=== PATIENT | female | born 1995 | race Caucasian/White ===

== ENCOUNTER → 2020-07-10 17:51 | Outpatient (BNVA) | payer MEDICAID, SELFPAY | PROVIDERS: PCP Nurse Practitioner Family; Visit Provider Surgery | DX: Z11.59 Encounter for screening for other viral diseases (principal) | CPT/HCPCS: 87635 ==

== ENCOUNTER 2020-07-14 06:43 | Day surgery (SDC) | payer MEDICAID, SELFPAY ==
[2020-07-11 13:57] VITALS: BMI 38.6
[2020-07-14 06:52] VITALS: BMI 38.6
[2020-07-14 07:05] VITALS: BP 145/89; PULSE 93; RESP 18; TEMP 36.7; O2SAT 99
[2020-07-14] MEDS: sodium chloride 0.9% 1,000 ML 30 ML IV (07:07)
[2020-07-14 07:12] LABS: OR HCG Qualitative Urine Negative (Negative)
--- NOTE | 2020-07-14 07:37 | W.PM.OPSUD ---
Surgery/Procedure H&P Update DATE OF PROCEDURE: July 14, 2020 DATE H&P PERFORMED: 07/07/20 H&P UPDATE INFORMATION: I have reviewed H&P completed within last 30 days, I have examined patient prior to procedure and No changes to prior documentation PREOP DIAGNOSIS: Hematochezia PRIMARY INDICATION FOR PROCEDURE: The same PLANNED PROCEDURE: Operation Date: 07/14/20 07:40 Proposed Procedures p EGD/colon 68620 [id number] R10.9 K92.1(Not Applicable) - Osmin Juan MD s Colonoscopy(Not Applicable) - Osmin Juan MD
[2020-07-14 08:00] VITALS: BP 117/81; PULSE 81; RESP 16; TEMP 36.5; O2SAT 97
--- NOTE | 2020-07-14 08:03 | ANE.PACU2 ---
Inpatient post-anesthesia follow up: Airway intact: Yes Vital signs: Temperature 98.1 F Pulse Rate 93 Respiratory Rate 18 Blood Pressure 145/89 Pulse Oximetry 99 Oxygen Delivery Me thod Room Air Oxygen Flow Rate Fraction of Inspir ed Oxygen Hydration adequate: Yes Nausea and vomiting: No Pain level: 1 Mental status: Baseline
--- NOTE | 2020-07-14 15:17 | ANE.PACU2 ---
Inpatient post-anesthesia follow up: Airway intact: Yes Vital signs: Temperature 97.7 F Pulse Rate 81 Respiratory Rate 16 Blood Pressure 117/81 Pulse Oximetry 97 Oxygen Delivery Me thod Nasal Cannula Oxygen Flow Rate 2 Fraction of Inspir ed Oxygen Hydration adequate: Yes Nausea and vomiting: No Pain level: 1 Mental status: Baseline
== END 2020-07-14 08:25 | disposition home or self-care (01) ==
PROVIDERS: Anesthesiology; PCP Nurse Practitioner Family; Visit Provider Surgery
PROC: 0DJ08ZZ Inspection of Upper Intestinal Tract, Via Natural or Artificial Opening Endoscopic (ICD-10-PCS; CPT 43235; principal; 2020-07-14 07:40)
PROC: 0DJD8ZZ Inspection of Lower Intestinal Tract, Via Natural or Artificial Opening Endoscopic (ICD-10-PCS; CPT 45378; 2020-07-14 07:40)
DX: K92.1 Melena (principal)
CPT/HCPCS: 12345; 43235; 45378; 81025; 84703; J2704; J7030

== ENCOUNTER → 2020-10-05 18:41 | Outpatient (BNVA) | payer MEDICAID, SELFPAY | PROVIDERS: PCP Nurse Practitioner Family; Visit Provider Nurse Practitioner Family | DX: Z20.828 Contact with and (suspected) exposure to other viral communicable diseases (principal) | CPT/HCPCS: 87635 ==

== ENCOUNTER 2021-01-28 18:38 | Emergency (ER) | payer BC, MEDICAID, SELFPAY ==
[2021-01-28 18:51] VITALS: BP 137/83; PULSE 83; RESP 18; TEMP 36.6; O2SAT 99; BMI 34.2
--- NOTE | 2021-01-28 19:05 | ED_ITS ---
HPI - Abdominal Pain General: Chief Complaint: Abdominal Pain Stated Complaint: ab pain, suspects appendicitis Time Seen by Provider: 01/28/21 18:50 Source: patient Mode of arrival: ambulatory Limitations: no limitations History of Present Illness: HPI narrative: 25-year-old female states she been having right flank pain throughout the day. States been a sharp pain she rates a 7 out of 10. She states it is worse with movement and was worse when she was driving her car. States improved with rest. She denies any dysuria. She denies any vaginal bleeding or discharge. She denies any vomiting or diarrhea. Denies any fevers. MD elicited complaint: abdominal pain Associated Symptoms: Denies chills, dysuria and fever(s) Related Data: Date of Last Menstrual Period: 01/12/21 Review of Systems Const: Denies: fever(s), chills, body aches or change in appetite Eyes: Denies: blurry vision or eye discomfort ENMT: Denies: throat pain or dental pain Card: Denies: chest pain Resp: Denies: dyspnea GI: Reports: abdominal pain : Denies: dysuria Musc: Denies: neck pain or back pain Skin/Breast: Denies: rash Neuro: Denies: headache(s) Psych: Denies: depression Alexx/Lymph: Denies: easy bruising All/Imm: Denies: urticaria PFSH ED PFSH: Medical History (Updated 01/28/21 @ 20:03 by Edgar Villegas MD) Blood in stool Family History Denies family history of Anesthesia complication Bleeding disorder Social History (Updated 10/05/20 @ 18:33 by Ayesha Pereira NP) Smoking and tobacco status: never smoked Alcohol intake: never Female Reproductive History: Date of last menstrual period: 01/12/21 Physical Exam Const: COMMON NORMALS: no acute distress, patient oriented x3 and healthy appearing HENMT: COMMON NORMALS: normocephalic and atraumatic HEAD & SCALP: normocephalic and atraumatic Eye: COMMON NORMALS: Equal, round and reactive pupils present and EOMs intact bilaterally PUPIL: Yes Equal, round and reactive pupils present Neck/C-Spine: COMMON NORMALS: full ROM and supple Chest: COMMONS NORMALS: normal inspection of the chest and normal palpation of entire chest wall Resp: COMMON NORMALS: normal respiratory effort, No retractions, No use of accessory muscles and clear to auscultation bilaterally AUSCULTATION: clear to auscultation bilaterally Cardio: COMMON NORMALS: regular rate, regular rhythm and No murmurs present (Cardio) RATE: regular rate RHYTHM: regular rhythm GI: COMMON NORMALS: Normal to inspection, nondistended, normoactive bowel sounds present, Soft to palpation, non-tender and no masses PALPATION: Yes Soft to palpation OTHER: right cva tenderness Extremity: COMMON NORMALS: normal to inspection and full ROM Neuro: COMMON NORMALS: patient oriented x3, moves all extremities and no focal motor deficits Psych: COMMON NORMALS: mental status grossly normal, Normal thought process present and cooperative THOUGHT PROCESS: Normal thought process present Skin: COMMON NORMALS: no rashes or lesions noted and no wounds GENERAL SKIN EXAM: no rashes or lesions noted Course Vital Signs: Vital signs: Vital Signs Temperature 97.8 F 01/28/21 18:51 Pulse Rate 87 01/28/21 19:18 Respiratory Rate 19 H 01/28/21 19:18 Blood Pressure 138/90 01/28/21 19:18 Pulse Oximetry 99 01/28/21 19:18 MDM - Abdominal Pain MDM Narrative: Medical decision making narrative: Brandy presents with abdominal pain likely from constipation. She has no signs of pyelonephritis or appendicitis. We will place her on MiraLAX and she is stable for discharge. She is to follow-up with PCP and return if worsening. Lab Data: Labs: Lab Results 01/28/21 01/28/21 01/28/21 Range/Units 18:50 18:50 19:13 WBC 10.5 H (4.0-10.0) 10^3/ uL RBC 4.12 (4.1-5.3) 10^6/u L Hgb 12.7 (11.5-15.3) g/dL Hct 38.1 (37.0-47.0) % MCV 92.5 (81-99) fL MCH 30.8 (28.0-34.0) pg MCHC 33.3 (30.0-36.0) g/dL RDW 11.7 L (12.1-15.1) % Plt Count 352 (130-400) 10^3/c mm MPV 11.0 H (7.4-10.4) fL Neut % (Auto) 56.2 % Lymph % (Auto) 33.4 % [place] % (Auto) 5.4 % Eos % (Auto) 4.0 % Baso % (Auto) 0.7 % Neut # (Auto) 5.92 (1.8-7.7) 10^3/u L Lymph # (Auto) 3.5 (0.8-4.8) 10^3/u L [place] # (Auto) 0.6 (0.2-0.9) 10^3/u L Eos # (Auto) 0.4 (0.0-0.8) 10^3/u L Baso # (Auto) 0.1 (0.0-0.1) 10^3/u L Nucleated RBC % (a uto) 0 % Nucleated RBCs # 0.0 /100WBC Sodium (136-145) mmol/L Potassium (3.5-5.1) mmol/L Chloride (98-107) mmol/L Carbon Dioxide (22-29) mmol/L Anion Gap (5-19) BUN (6-20) mg/dL Creatinine (0.5-0.9) mg/dL GFR Calculation (90-130) mL/min Glucose (65-115) mg/dL Calculated Osmolal ity (285-295) mOsm/k g Calcium (8.5-10.5) mg/dL Total Bilirubin (0.15-1.2) mg/dL AST (0-32) U/L ALT (0-33) U/L Alkaline Phosphata se (35-105) IU/L Total Protein (6.6-8.7) g/dL Albumin (3.5-5.2) g/dL Globulin (1.3-4.6) g/dL Lipase (13-60) U/L HCG, Qual Negative (Negative) Urine Color Yellow (Yellow) Urine Appearance Clear (CLEAR) Urine pH 5 (5-7) Ur Specific Gravit y 1.020 (1.005-1.030) Urine Protein Neg (Negative) Urine Glucose (UA) Norm (Normal) Urine Ketones Negative (Negative) Urine Blood Neg (Negative) Urine Nitrate Negative (Negative) Urine Bilirubin Neg (Negative) Urine Urobilinogen Norm (Negative) mg/dL Ur Leukocyte Libia ase Negative (Negative) 01/28/21 Range/Units 19:13 WBC (4.0-10.0) 10^3/ uL RBC (4.1-5.3) 10^6/u L Hgb (11.5-15.3) g/dL Hct (37.0-47.0) % MCV (81-99) fL MCH (28.0-34.0) pg MCHC (30.0-36.0) g/dL RDW (12.1-15.1) % Plt Count (130-400) 10^3/c mm MPV (7.4-10.4) fL Neut % (Auto) % Lymph % (Auto) % [place] % (Auto) % Eos % (Auto) % Baso % (Auto) % Neut # (Auto) (1.8-7.7) 10^3/u L Lymph # (Auto) (0.8-4.8) 10^3/u L [place] # (Auto) (0.2-0.9) 10^3/u L Eos # (Auto) (0.0-0.8) 10^3/u L Baso # (Auto) (0.0-0.1) 10^3/u L Nucleated RBC % (a uto) % Nucleated RBCs # /100WBC Sodium 137 (136-145) mmol/L Potassium 4.1 (3.5-5.1) mmol/L Chloride 103 (98-107) mmol/L Carbon Dioxide 26 (22-29) mmol/L Anion Gap 12.1 (5-19) BUN 9 (6-20) mg/dL Creatinine 0.6 (0.5-0.9) mg/dL GFR Calculation 123.9 (90-130) mL/min Glucose 102 (65-115) mg/dL Calculated Osmolal ity 283 L (285-295) mOsm/k g Calcium 9.1 (8.5-10.5) mg/dL Total Bilirubin 0.3 (0.15-1.2) mg/dL AST 11 (0-32) U/L ALT 10 (0-33) U/L Alkaline Phosphata se 65 (35-105) IU/L Total Protein 6.8 (6.6-8.7) g/dL Albumin 4.3 (3.5-5.2) g/dL Globulin 2.5 (1.3-4.6) g/dL Lipase 55 (13-60) U/L HCG, Qual (Negative) Urine Color (Yellow) Urine Appearance (CLEAR) Urine pH (5-7) Ur Specific Gravit y (1.005-1.030) Urine Protein (Negative) Urine Glucose (UA) (Normal) Urine Ketones (Negative) Urine Blood (Negative) Urine Nitrate (Negative) Urine Bilirubin (Negative) Urine Urobilinogen (Negative) mg/dL Ur Leukocyte Libia ase (Negative) Imaging Data ^: CT Abd/Pel: Radiologist's impression: [id number] [address] [address] Scan Report Signed Patient: Niya Mckeon Unit #: [id number] : 1995 Age/Sex: 25 / F ADM Date: 01/28/21 Loc: ER Room/Bed: Attending Dr: Ordering Provider/Ordering MD: Edgar Villegas MD Date of Service: 01/28/21 Procedure(s): CT abdomen pelvis w con* [id number] Accession Number(s): [id number] Report Number: [id number] PROCEDURE INFORMATION: Exam: CT Abdomen And Pelvis With Contrast Exam date and time: 01/28/2021 7:23 PM Age: 25 years old Clinical indication: Abdominal pain; Localized; Right lower quadrant (rlq); Additional info: Abd pain TECHNIQUE: Imaging protocol: Computed tomography of the abdomen and pelvis with contrast. Radiation optimization: All CT scans at this facility use at least one of these dose optimization techniques: automated exposure control; mA and/or kV adjustment per patient size (includes targeted exams where dose is matched to clinical indication); or iterative reconstruction. Contrast material: OMNI 300; Contrast volume: 95 ml; Contrast route: INTRAVENOUS (IV); COMPARISON: CT Abdomen/Pelvis Renal [id number] 08/18/2018 10:34 PM RADIATION DOSE METRICS: Total DLP (mGy-cm): 1737.77 FINDINGS: Lungs: The visualized lung bases are clear. Liver: Normal size and density. No focal mass. Gallbladder and bile ducts: No intrahepatic or extrahepatic biliary dilitation. No calcified stones. Pancreas: No evidence of mass. No ductal dilation. Spleen: No splenomegaly or mass. Adrenal glands: Normal. Kidneys and ureters: No stones or hydronephrosis. No evidence of focal mass. Stomach and bowel: No evidence of obstruction. No focal bowel wall thickening or mass. No significant diverticula. Moderate to large amount of formed stool throughout the colon. Appendix: No evidence of appendicitis. Intraperitoneal space: No free air. No free fluid or evidence of abscess. Vasculature: No concerning abnormalities. Lymph nodes: Multiple is enteric lymph nodes are mildly prominent, but not pathologically enlarged by CT size criteria. This is similar in appearance to the prior exam. Urinary bladder: Normal CT appearance. Reproductive: Normal CT appearance for age. Bones/joints: No acute abnormality. Soft tissues: Within normal limits. CT/CT abdomen pelvis w con* [id number] IMPRESSION: 1. No acute findings. 2. A moderate to large amount of formed stool throughout the colon. Discharge Plan Discharge Patient Disposition: Home Clinical Impression: Constipation Qualifiers: Constipation type: unspecified constipation type Qualified Code(s): K59.00 - Constipation, unspecified Condition: Stable Prescriptions: New polyethylene glycol 3350 [Miralax] 17 gram/dose powder 17 g PO DAILY PRN (Reason: constipation) Qty: 119 RF: 0 No Action levothyroxine 125 mcg capsule 125 mcg PO DAILY@0500 RF: 0 bupropion HCl [Wellbutrin XL] 300 mg tablet extended release 24 hr 300 mg PO DAILY@0900 RF: 0 Discharge Orders: Discharge ED (Routine); Ordered 01/28/21 Ordered By: Edgar Villegas Referrals: Reji,WOODY Nelson [Primary Care Provider] - 1-3 days Discharge Diet: Advance as tolerated Discharge Activity: Resume usual activity Patient Instructions: Constipation (ED) Coding Level of Care Code ED Freezer Machine Operator for Chg Fwd Exam Comprehensive
[2021-01-28 19:08] LABS: Add Urine Microscopic? NO; Charge for UA Resulting for Rev
[2021-01-28 19:14] LABS: Bilirubin Urine Neg (Negative); Blood Urine Neg (Negative); Glucose Urine UA Norm (Normal); HCG Qualitative Urine. Negative (Negative); Ketones Urine Negative (Negative); Leukocyte Esterase Urine Negative (Negative); Nitrate Urine Negative (Negative); Protein Urine Neg (Negative); Urine Appearance Clear (CLEAR); Urine Color Yellow (Yellow); Urobilinogen Urine Norm (Negative); pH Urine 5 (5-7)
[2021-01-28 19:18] VITALS: BP 138/90; PULSE 87; RESP 19; O2SAT 99
[2021-01-28 19:20] LABS: Basophils # 0.1 10^3/uL (0.0-0.1); Basophils % 0.7 %; Eosinophils # 0.4 10^3/uL (0.0-0.8); Hematocrit 38.1 % (37.0-47.0); Hemoglobin 12.7 g/dL (11.5-15.3); Lymphocytes # 3.5 10^3/uL (0.8-4.8); Lymphocytes % 33.4 %; Mean Corpuscular HGB Conc 33.3 g/dL (30.0-36.0); Mean Corpuscular Hemoglobin 30.8 pg (28.0-34.0); Mean Corpuscular Volume 92.5 fL (81-99); Monocytes # 0.6 10^3/uL (0.2-0.9); Monocytes % 5.4 %; Neutrophils # 5.92 10^3/uL (1.8-7.7); Neutrophils % 56.2 %; Nucleated Red Blood Cells % 0 %; Platelet Count 352 10^3/cmm (130-400); Red Blood Count 4.12 10^6/uL (4.1-5.3); Red Cell Distribution Width 11.7 % (12.1-15.1); White Blood Count 10.5 10^3/uL (4.0-10.0)
[2021-01-28] MEDS: ondansetron 2 mg/ML SDV 2 mL 4 MG IVP (19:21)
[2021-01-28] MEDS: morphine 4 mg/mL SDV 1 mL IVP (19:23)
[2021-01-28] MEDS: iohexol 300 mg/mL 100 mL Btl IV (19:38)
[2021-01-28 19:46] LABS: Alanine Aminotransferase 10 U/L (0-33); Albumin Level 4.3 g/dL (3.5-5.2); Alkaline Phosphatase 65 IU/L (35-105); Anion Gap 12.1 (5-19); Aspartate Amino Transferase 11 U/L (0-32); Blood Urea Nitrogen 9 mg/dL (6-20); Calcium 9.1 mg/dL (8.5-10.5); Carbon Dioxide 26 mmol/L (22-29); Chloride 103 mmol/L (98-107); Globulin 2.5 g/dL (1.3-4.6); Glomerular Filtration Rate 123.9 mL/min (90-130); Glucose 102 mg/dL (65-115); Lipase 55 U/L (13-60); Osmolality Calculated 283 mOsm/kg (285-295); Potassium 4.1 mmol/L (3.5-5.1); Sodium 137 mmol/L (136-145); Total Bilirubin 0.3 mg/dL (0.15-1.2); Total Protein 6.8 g/dL (6.6-8.7)
[2021-01-28 20:23] VITALS: BP 125/78; PULSE 86; O2SAT 98
== END 2021-01-28 20:23 | disposition home or self-care (01) ==
PROVIDERS: Emergency Provider Emergency Medicine; PCP Nurse Practitioner Family
DX: K59.00 Constipation, unspecified (principal)
CPT/HCPCS: 74177; 80053; 81003; 81025; 83690; 85025; 96374; 96375; 99283; J2270; J2405; Q9967

== ENCOUNTER 2021-01-29 03:07 | Emergency (ER) | payer BC, MEDICAID, SELFPAY ==
[2021-01-29 03:13] VITALS: PULSE 83; RESP 18; TEMP 36.2; O2SAT 100; BMI 34.2
--- NOTE | 2021-01-29 03:21 | ED_ITS ---
HPI - Allergic Reaction General: Chief complaint: Allergic Reaction Stated complaint: poss allergic reaction Time Seen by Provider: 01/29/21 03:10 Source: patient Mode of arrival: ambulatory History of Present Illness: HPI narrative: 25-year-old female who was seen here earlier in the night for abdominal pain. She received morphine Zofran and had a CT of her abdomen with contrast. Findings were all normal and patient was discharged. States she started having a rash and itchiness about midnight. States she woke up at 230 it was worsening. She does have a rash to her chest and arms. She has no wheezing and denies any shortness of breath or trouble swallowing. No known allergic reactions in the past. MD complaint: allergic reaction Associated symptoms: Deny abdominal pain, nausea or vomiting Review of Systems Const: Denies: fever(s), chills, body aches or change in appetite Eyes: Denies: blurry vision or eye discomfort ENMT: Denies: throat pain or dental pain Card: Denies: chest pain Resp: Denies: dyspnea GI: Denies: abdominal pain, nausea, vomiting or diarrhea : Denies: dysuria Musc: Denies: neck pain or back pain Skin/Breast: Reports: rash Neuro: Denies: headache(s) Psych: Denies: depression Alexx/Lymph: Denies: easy bruising All/Imm: Denies: urticaria PFS ED PFSH: Medical History (Updated 01/29/21 @ 04:36 by Edgar Villegas MD) Blood in stool Family History Denies family history of Anesthesia complication Bleeding disorder Social History (Updated 10/05/20 @ 18:33 by Ayesha Pereira NP) Smoking and tobacco status: never smoked Alcohol intake: never Female Reproductive History: Date of last menstrual period: 01/12/21 Physical Exam Const: COMMON NORMALS: no acute distress, patient oriented x3 and healthy appearing HENMT: COMMON NORMALS: normocephalic and atraumatic HEAD & SCALP: normocephalic and atraumatic Eye: COMMON NORMALS: Equal, round and reactive pupils present and EOMs intact bilaterally PUPIL: Yes Equal, round and reactive pupils present Neck/C-Spine: COMMON NORMALS: full ROM and supple Chest: COMMONS NORMALS: normal inspection of the chest and normal palpation of entire chest wall Resp: COMMON NORMALS: normal respiratory effort, No retractions, No use of accessory muscles and clear to auscultation bilaterally AUSCULTATION: clear to auscultation bilaterally Cardio: COMMON NORMALS: regular rate, regular rhythm and No murmurs present (Cardio) RATE: regular rate RHYTHM: regular rhythm GI: COMMON NORMALS: Normal to inspection, nondistended, normoactive bowel sounds present, Soft to palpation, non-tender and no masses PALPATION: Yes Soft to palpation Extremity: COMMON NORMALS: normal to inspection and full ROM Neuro: COMMON NORMALS: patient oriented x3, moves all extremities and no focal motor deficits Psych: COMMON NORMALS: mental status grossly normal, Normal thought process present and cooperative THOUGHT PROCESS: Normal thought process present Skin: COMMON NORMALS: no wounds NARRATIVE SKIN EXAM: Urticarial rash to chest trunk and arms Course Vital Signs: Vital signs: Vital Signs Temperature 97.1 F L 01/29/21 03:13 Pulse Rate 85 01/29/21 04:21 Respiratory Rate 13 01/29/21 04:21 Blood Pressure 121/70 01/29/21 04:21 Pulse Oximetry 99 01/29/21 04:21 MDM - Allergic Reaction MDM Narrative: Medical decision making narrative: Patient presents with allergic reaction. She is greatly improved after epinephrine. We will place her on 5 days of prednisone along with EpiPen. She is stable for discharge and is return if worsening. She understands agrees to plan. Discharge Plan Discharge Patient Disposition: Home Clinical Impression: Allergic reaction Qualifiers: Encounter type: initial encounter Qualified Code(s): T78.40XA - Allergy, unspecified, initial encounter Condition: Stable Prescriptions: New prednisone 50 mg tablet 50 mg PO DAILY Qty: 5 RF: 0 EpiPen 2-[place] 0.3 mg/0.3 mL auto-injector 0.3 mg IM Q30M PRN (Reason: anaphylaxis) Qty: 2 RF: 0 No Action levothyroxine 125 mcg capsule 125 mcg PO DAILY@0500 RF: 0 bupropion HCl [Wellbutrin XL] 300 mg tablet extended release 24 hr 300 mg PO DAILY@0900 RF: 0 Miralax 17 gram/dose powder 17 g PO DAILY PRN (Reason: constipation) Qty: 119 RF: 0 Discharge Orders: Discharge ED (Routine); Ordered 01/29/21 Ordered By: Edgar Villegas Referrals: Leslie Mendoza APN [Primary Care Provider] - 1-3 days Discharge Diet: Advance as tolerated Discharge Activity: Use walker/crutches as instructed Patient Instructions: Allergic Reaction, Urticaria (ED) Stand Alone Forms: Work/School Release Coding Level of Care Code ED Sap Data Analyst for Chg Fwd Exam Comprehensive
[2021-01-29] MEDS: diphenhydrAMINE 50 mg/mL SDV 1mL IVP (03:52)
[2021-01-29] MEDS: EPINEPHrine 1 mg/mL INJ 0.5 MG IM (04:00)
[2021-01-29 04:07] VITALS: BP 119/64; PULSE 86; RESP 18; O2SAT 99
[2021-01-29 04:21] VITALS: BP 121/70; PULSE 85; RESP 13; O2SAT 99
[2021-01-29 05:03] VITALS: BP 105/76; PULSE 102; RESP 21; O2SAT 99
== END 2021-01-29 05:04 | disposition home or self-care (01) ==
PROVIDERS: Emergency Provider Emergency Medicine; PCP Nurse Practitioner Family
DX: T78.40XA Allergy, unspecified, initial encounter (principal)
CPT/HCPCS: 96372; 96374; 96375; 99283; J0171; J1200; J2930

== ENCOUNTER → 2021-02-07 17:21 | Outpatient (BNVA) | payer BC, MEDICAID, SELFPAY | PROVIDERS: PCP Nurse Practitioner Family; Visit Provider Nurse Practitioner Family | DX: Z34.90 Encounter for supervision of normal pregnancy, unspecified, unspecified trimester (principal) | CPT/HCPCS: 81025 ==

== ENCOUNTER 2021-03-08 18:15 | Emergency (ER) | payer BC, MEDICAID, SELFPAY ==
[2021-03-08 18:46] VITALS: BP 124/81; PULSE 90; RESP 16; TEMP 36.7; O2SAT 100; BMI 35.4
--- NOTE | 2021-03-08 19:05 | USR_ITS ---
PROCEDURE INFORMATION: Exam: US First Trimester, Transabdominal and US , Transvaginal Exam date and time: 03/08/2021 7:20 PM Age: 25 years old Clinical indication: Lmp or gestational age (in weeks): 6w4d per her dates; Antepartum complications; Bleeding; ; Prior surgery; Surgery date: 6+ months; Surgery type: Ablation with twin to twin transfer. ; Additional info: Vag bleed preg. . Progressing TECHNIQUE: Imaging protocol: Real-time transabdominal obstetrical ultrasound of the maternal pelvis and a first trimester , less than 14 weeks 0 days, with image documentation. Transvaginal imaging was used for better evaluation of the fetus, adnexa, and/or cervix. COMPARISON: [facility] Follow up 09/15/2017 1:28 PM FINDINGS: Gestation: No heartbeat at this time within the pole. Mean gestational sac diameter 0.99 cm with EGA 6 weeks 0 days. 6.6 mm yolk sac. Embryonic/ heart rate: No heartbeat at this time. Possibly too early. Extra-embryonic membranes/Placenta: Unremarkable. No subchorionic bleed. Amniotic fluid: Amniotic fluid is normal for gestational age. BIOMETRY: Gestational age (AUA): Single intrauterine with EGA 6 weeks 0 days. Bailey-Rump length: Bailey-rump length 3.9 mm with EGA 6 weeks 0 days. MATERNAL: Uterus: 6.6 x 5.0 x 6.5 cm uterus with estimated volume 111 cc. Cervix: Unremarkable. Right adnexa: 2.6 x 2.5 x 2.9 cm right ovary with estimated volume 10.2 cc. 1.7 x 1.6 x 1.6 cm complex right ovarian cyst suggesting possible corpus luteum cyst. Normal ovarian perfusion bilaterally with no torsion. Left adnexa: 2.1 x 1.3 x 1.9 cm left ovary with estimated volume 2.6 cc. Intraperitoneal space: No intraperitoneal free fluid. Other findings: Serial quantitative hCGs and/or followup ultrasound may be helpful. US/US OB <=14 wk fetus w transvag IMPRESSION: 1. Single intrauterine with EGA 6 weeks 0 days. 2. No heartbeat at this time within the pole. 3. Serial quantitative hCGs and/or followup ultrasound may be helpful. 4. 1.7 x 1.6 x 1.6 cm complex right ovarian cyst suggesting possible corpus luteum cyst. 5. Normal ovarian perfusion bilaterally with no torsion.
[2021-03-08 19:34] LABS: Add Urine Microscopic? NO; Charge for UA Resulting for Rev
[2021-03-08 19:41] LABS: Bilirubin Urine Neg (Negative); Blood Urine Neg (Negative); Glucose Urine UA Norm (Normal); Ketones Urine Negative (Negative); Leukocyte Esterase Urine Negative (Negative); Nitrate Urine Negative (Negative); Protein Urine Neg (Negative); Specific Gravity, Urine 1.025 (1.005-1.030); Urine Appearance Clear (CLEAR); Urine Color Yellow (Yellow); Urobilinogen Urine Norm (Negative); pH Urine 5 (5-7)
[2021-03-08 22:10] VITALS: BP 133/91; PULSE 86; RESP 18; O2SAT 100
[2021-03-08 22:31] LABS: Basophils # 0.1 10^3/uL (0.0-0.1); Basophils % 0.6 %; Eosinophils # 0.2 10^3/uL (0.0-0.8); Eosinophils % 2.8 %; Hematocrit 38.5 % (37.0-47.0); Hemoglobin 12.5 g/dL (11.5-15.3); Lymphocytes # 3.4 10^3/uL (0.8-4.8); Mean Corpuscular HGB Conc 32.5 g/dL (30.0-36.0); Mean Corpuscular Hemoglobin 30.1 pg (28.0-34.0); Mean Corpuscular Volume 92.8 fL (81-99); Monocytes # 0.7 10^3/uL (0.2-0.9); Monocytes % 9.3 %; Neutrophils # 3.27 10^3/uL (1.8-7.7); Neutrophils % 42.4 %; Nucleated Red Blood Cells % 0 %; Platelet Count 310 10^3/cmm (130-400); Red Blood Count 4.15 10^6/uL (4.1-5.3); Red Cell Distribution Width 12.1 % (12.1-15.1); White Blood Count 7.7 10^3/uL (4.0-10.0)
[2021-03-08 22:57] LABS: Blood Urea Nitrogen 12 mg/dL (6-20); Calcium 9.5 mg/dL (8.5-10.5); Carbon Dioxide 23 mmol/L (22-29); Chloride 103 mmol/L (98-107); Glomerular Filtration Rate 123.9 mL/min (90-130); Glucose 90 mg/dL (65-115); Osmolality Calculated 287 mOsm/kg (285-295); Sodium 139 mmol/L (136-145)
[2021-03-08 23:09] VITALS: BP 121/82; RESP 19; O2SAT 99
--- NOTE | 2021-03-08 23:53 | W.ED.PREGNAN ---
Documented by User: Debo Hernandez 03/09/21 00:00 HPI - General: Chief complaint: Vaginal Bleeding Stated complaint: bleeding, 7 weeks Time Seen by Provider: 03/08/21 19:18 Source: patient Mode of arrival: ambulatory Limitations: no limitations History of Present Illness: HPI Narrative: 25 yo female patient presents with pelvic pain and vaginal spotting patient states she is about 6 weeks . . Pt deneis fever, abd pain or any urinary symptoms. pt noticed spotting this am. Date of Last Menstrual Period: 01/12/21 Associated symptoms: Deny abdominal pain, dysuria, headache(s), malaise, nausea, syncope or vomiting Related Data: : 4 Review of Systems Const: Denies: fever(s), chills, body aches, change in appetite, change in weight, fatigue, malaise or diaphoresis Eyes: Denies: change in vision, blurry vision, blind spots, photophobia, eye discomfort, eye discharge, eye redness, floaters or seeing flashes ENMT: Denies: throat pain, uvular edema, enlarged tonsils, odynophagia, hoarseness, mouth pain, swelling of lips/tongue, oral sores, bleeding gums, dental pain, dry mouth, ear or mastoid pain, ear discharge, change in hearing, tinnitus, disequilibrium, nasal discharge, nasal congestion, post nasal drip or sinus pain Card: Denies: chest pain, palpitations, irregular heart rhythm, edema, swelling of feet/ankles, lightheadedness, syncope, pre-syncope, dyspnea on exertion, orthopnea, leg pain with exertion or acrocyanosis Resp: Denies: dyspnea, productive cough, non-productive cough, wheezing, stridor, pain on inspiration, change in phlegm color, hemoptysis or chest congestion GI: Denies: abdominal pain, nausea, vomiting, hematemesis, dysphagia, diarrhea, constipation, GI cramping, change in bowel habits or rectal pain : Reports: vaginal bleeding; Denies: flank pain, difficulty voiding, dysuria, urinary frequency, urinary urgency, urinary hesitancy or hematuria Musc: Denies: neck pain, back pain, extremity pain, extremity swelling, joint pain, joint swelling, joint redness, joint warmth or deformity Skin/Breast: Denies: rash, pruritus, erythema, sores, new lesions, changes in skin color or dry skin Neuro: Denies: headache(s), numbness in extremities, weakness in extremities, sensory changes, lack of coordination, difficulty walking, frequent falls, dizziness, vertigo, confusion, behavioral changes, Slurred speech present, difficulty communicating thoughts or seizure-like activity Psych: Denies: anxiety, depression, suicidal ideation or homicidal ideation Endo: Denies: polyuria, polydipsia, tired all the time, cold intolerance, excessive sweating, flushing, hot flashes or heat intolerance Alexx/Lymph: Denies: easy bruising, easy bleeding, petechiae, purpura, enlarged lymph nodes or tender lymph nodes All/Imm: Denies: urticaria, throat swelling, tongue swelling, facial swelling, acute wheezing or itchy eyes PFSH ED PFSH: Medical History (Updated 03/09/21 @ 00:37 by Indio Victor DO) Blood in stool Family History Denies family history of Anesthesia complication Bleeding disorder Social History Smoking and tobacco status: never smoked Alcohol intake: never Female Reproductive History: Date of last menstrual period: 01/12/21 : 4 Physical Exam Const: COMMON NORMALS: no acute distress, average body habitus, patient oriented x3, no limitations, healthy appearing, alert and well nourished HENMT: COMMON NORMALS: normocephalic, atraumatic, hearing grossly normal bilaterally, external ears normal, EAC's normal, TM's normal bilaterally, Normal external nose present, Normal nasal mucous membranes and turbinates present, moist oral mucous membranes, oropharynx normal, dentition normal and gingiva normal HEAD & SCALP: normocephalic and atraumatic NOSE: Normal external nose present and Normal nasal mucous membranes and turbinates present EXTERNAL EAR: Yes external ears normal EXTERNAL AUDITORY CANAL: EAC's normal TYMPANIC MEMBRANE: TM's normal bilaterally THROAT: no uvular edema Eye: COMMON NORMALS: Equal, round and reactive pupils present, EOMs intact bilaterally and conjunctivae normal CONJUNCTIVA: Yes conjunctivae normal PUPIL: Yes Equal, round and reactive pupils present Chest: COMMONS NORMALS: normal inspection of the chest, normal palpation of entire chest wall, normal inspection of the breasts and normal palpation of the breasts Breast/axilla inspection: Yes normal inspection of the breasts BREAST/AXILLA PALPATION: Yes normal palpation of the breasts Resp: COMMON NORMALS: normal respiratory effort, No retractions, No use of accessory muscles, clear to auscultation bilaterally and percussion normal AUSCULTATION: clear to auscultation bilaterally PERCUSSION: percussion normal Cardio: COMMON NORMALS: regular rate and regular rhythm RATE: regular rate RHYTHM: regular rhythm GI: COMMON NORMALS: Normal to inspection, nondistended, normoactive bowel sounds present, Soft to palpation, non-tender, No hepatosplenomegaly present, no masses and no bruits PALPATION: Yes Soft to palpation and Yes No hepatosplenomegaly present : COMMON NORMALS: Yes no CVA tenderness, Yes normal external appearance, Yes normal appearance of the vagina, Yes normal appearance of the cervix, Yes normal bimanual exam, Yes No adnexal tenderness and Yes no masses BLADDER/KIDNEY EXAM: Yes no CVA tenderness BIMANUAL EXAM - VAGINA & UTERUS: Yes normal bimanual exam Back/Pelvis: COMMON NORMALS: no CVA tenderness, thoracic and lumbar spine normal to inspection, no thoracic nor lumbar tenderness and thoraco-lumbar ROM normal Extremity: COMMON NORMALS: normal to inspection, full ROM, capillary refill normal, no joint enlargement, no clubbing, cyanosis or edema, no calf tenderness and no pedal edema Neuro: COMMON NORMALS: patient oriented x3, CN's II-XII intact bilaterally, moves all extremities, no focal motor deficits, no sensory deficits noted, deep tendon reflexes 2+ bilaterally and gait normal SENSORIUM/ORIENTATION: Yes alert Psych: COMMON NORMALS: mental status grossly normal, Normal thought process present, cooperative, normal affect, speech normal, activity/motor behavior normal, denies hallucinations, denies homicidal ideation and denies suicidal ideation SPEECH: Yes normal speech THOUGHT PROCESS: Normal thought process present Skin: COMMON NORMALS: no rashes or lesions noted, no wounds, turgor normal, no jaundice, no petechiae and no mottling GENERAL SKIN EXAM: no rashes or lesions noted and turgor normal Course Vital Signs: Vital signs: Vital Signs Temperature 98.1 F 03/08/21 18:46 Pulse Rate 80 03/09/21 00:55 Respiratory Rate 16 03/09/21 00:55 Blood Pressure 152/91 03/09/21 00:55 Pulse Oximetry 100 03/09/21 00:55 MDM - OB/Uterine Contractions MDM Narrative: Medical decision making narrative: Pt is well appearing non toxic and in no acute distress. Pt is RH negative and anna be given Rho megan while here in the ER. US reveals Ordering Provider/Ordering MD: Debo Hernandez NP Date of Service: 03/08/21 Procedure(s): US OB <=14 wk fetus w transvag Accession Number(s): [id number] Report Number: [id number] PROCEDURE INFORMATION: Exam: US First Trimester, Transabdominal and US , Transvaginal Exam date and time: 03/08/2021 7:20 PM Age: 25 years old Clinical indication: Lmp or gestational age (in weeks): 6w4d per her dates; Antepartum complications; Bleeding; ; Prior surgery; Surgery date: 6+ months; Surgery type: Ablation with twin to twin transfer. ; Additional info: Vag bleed preg. . Progressing TECHNIQUE: Imaging protocol: Real-time transabdominal obstetrical ultrasound of the maternal pelvis and a first trimester , less than 14 weeks 0 days, with image documentation. Transvaginal imaging was used for better evaluation of the fetus, adnexa, and/or cervix. COMPARISON: [facility] OB Follow up 09/15/2017 1:28 PM FINDINGS: Gestation: No heartbeat at this time within the pole. Mean gestational sac diameter 0.99 cm with EGA 6 weeks 0 days. 6.6 mm yolk sac. Embryonic/ heart rate: No heartbeat at this time. Possibly too early. Extra-embryonic membranes/Placenta: Unremarkable. No subchorionic bleed. Amniotic fluid: Amniotic fluid is normal for gestational age. BIOMETRY: Gestational age (AUA): Single intrauterine with EGA 6 weeks 0 days. [place]-Rump length: [place]-rump length 3.9 mm with EGA 6 weeks 0 days. MATERNAL: Uterus: 6.6 x 5.0 x 6.5 cm uterus with estimated volume 111 cc. Cervix: Unremarkable. Right adnexa: 2.6 x 2.5 x 2.9 cm right ovary with estimated volume 10.2 cc. 1.7 x 1.6 x 1.6 cm complex right ovarian cyst suggesting possible corpus luteum cyst. Normal ovarian perfusion bilaterally with no torsion. Left adnexa: 2.1 x 1.3 x 1.9 cm left ovary with estimated volume 2.6 cc. Intraperitoneal space: No intraperitoneal free fluid. Other findings: Serial quantitative hCGs and/or followup ultrasound may be helpful. US/US OB <=14 wk fetus w transvag IMPRESSION: 1. Single intrauterine with EGA 6 weeks 0 days. 2. No heartbeat at this time within the pole. 3. Serial quantitative hCGs and/or followup ultrasound may be helpful. 4. 1.7 x 1.6 x 1.6 cm complex right ovarian cyst suggesting possible corpus luteum cyst. 5. Normal ovarian perfusion bilaterally with no torsion. H & H are stable. I have advisd patient t follow up for repeat Beta HCG levels and US. Return precautions and home care to include pelvic rest advised Lab Data: Labs: Lab Results 03/08/21 03/08/21 03/08/21 Range/Units 19:18 22:02 22:02 WBC 7.7 (4.0-10.0) 10^3/ uL RBC 4.15 (4.1-5.3) 10^6/u L Hgb 12.5 (11.5-15.3) g/dL Hct 38.5 (37.0-47.0) % MCV 92.8 (81-99) fL MCH 30.1 (28.0-34.0) pg MCHC 32.5 (30.0-36.0) g/dL RDW 12.1 (12.1-15.1) % Plt Count 310 (130-400) 10^3/c mm MPV 11.0 H (7.4-10.4) fL Neut % (Auto) 42.4 % Lymph % (Auto) 44.0 % Carver % (Auto) 9.3 % Eos % (Auto) 2.8 % Baso % (Auto) 0.6 % Neut # (Auto) 3.27 (1.8-7.7) 10^3/u L Lymph # (Auto) 3.4 (0.8-4.8) 10^3/u L Carver # (Auto) 0.7 (0.2-0.9) 10^3/u L Eos # (Auto) 0.2 (0.0-0.8) 10^3/u L Baso # (Auto) 0.1 (0.0-0.1) 10^3/u L Nucleated RBC % (a uto) 0 % Nucleated RBCs # 0.0 /100WBC Sodium (136-145) mmol/L Potassium (3.5-5.1) mmol/L Chloride (98-107) mmol/L Carbon Dioxide (22-29) mmol/L Anion Gap (5-19) BUN (6-20) mg/dL Creatinine (0.5-0.9) mg/dL GFR Calculation (90-130) mL/min Glucose (65-115) mg/dL Calculated Osmolal ity (285-295) mOsm/k g Calcium (8.5-10.5) mg/dL Ser , Nadir i-Qnt mIU/mL Urine Color Yellow (Yellow) Urine Appearance Clear (CLEAR) Urine pH 5 (5-7) Ur Specific Gravit y 1.025 (1.005-1.030) Urine Protein Neg (Negative) Urine Glucose (UA) Norm (Normal) Urine Ketones Negative (Negative) Urine Blood Neg (Negative) Urine Nitrate Negative (Negative) Urine Bilirubin Neg (Negative) Urine Urobilinogen Norm (Negative) mg/dL Ur Leukocyte Libia ase Negative (Negative) Blood Type A Negative Rho(D) Type Negative / 0 Antibody Screen Negative 03/08/21 Range/Units 22:02 WBC (4.0-10.0) 10^3/ uL RBC (4.1-5.3) 10^6/u L Hgb (11.5-15.3) g/dL Hct (37.0-47.0) % MCV (81-99) fL MCH (28.0-34.0) pg MCHC (30.0-36.0) g/dL RDW (12.1-15.1) % Plt Count (130-400) 10^3/c mm MPV (7.4-10.4) fL Neut % (Auto) % Lymph % (Auto) % Carver % (Auto) % Eos % (Auto) % Baso % (Auto) % Neut # (Auto) (1.8-7.7) 10^3/u L Lymph # (Auto) (0.8-4.8) 10^3/u L Carver # (Auto) (0.2-0.9) 10^3/u L Eos # (Auto) (0.0-0.8) 10^3/u L Baso # (Auto) (0.0-0.1) 10^3/u L Nucleated RBC % (a uto) % Nucleated RBCs # /100WBC Sodium 139 (136-145) mmol/L Potassium 4.0 (3.5-5.1) mmol/L Chloride 103 (98-107) mmol/L Carbon Dioxide 23 (22-29) mmol/L Anion Gap 17.0 (5-19) BUN 12 (6-20) mg/dL Creatinine 0.6 (0.5-0.9) mg/dL GFR Calculation 123.9 (90-130) mL/min Glucose 90 (65-115) mg/dL Calculated Osmolal ity 287 (285-295) mOsm/k g Calcium 9.5 (8.5-10.5) mg/dL Ser , Nadir i-Qnt 2524.00 mIU/mL Urine Color (Yellow) Urine Appearance (CLEAR) Urine pH (5-7) Ur Specific Gravit y (1.005-1.030) Urine Protein (Negative) Urine Glucose (UA) (Normal) Urine Ketones (Negative) Urine Blood (Negative) Urine Nitrate (Negative) Urine Bilirubin (Negative) Urine Urobilinogen (Negative) mg/dL Ur Leukocyte Libia ase (Negative) Blood Type Rho(D) Type Antibody Screen Discharge Plan Discharge Clinical Impression: Vaginal bleeding, Threatened Condition: Stable Prescriptions: No Action levothyroxine 125 mcg capsule 125 mcg PO DAILY@0500 RF: 0 bupropion HCl [Wellbutrin XL] 300 mg tablet extended release 24 hr 300 mg PO DAILY@0900 RF: 0 EpiPen 2-Corona 0.3 mg/0.3 mL auto-injector 0.3 mg IM Q30M PRN (Reason: anaphylaxis) Qty: 2 RF: 0 Miralax 17 gram/dose powder 17 g PO DAILY PRN (Reason: constipation) Qty: 119 RF: 0 Discharge Orders: Discharge ED (Routine); Ordered 03/08/21 Ordered By: Debo Hernandez Referrals: Berna Hendrix MD [Primary Care Provider] - Discharge Diet: Advance as tolerated Discharge Activity: Increase activity as tolerated Patient Instructions: Threatened Miscarriage (ED) Activity Restrictions/Additional Instructions: Please follow up with OB for recheck of beta hcg and US in 48 hours or return to ER sooner if You feel weak or faint. You have worsening cramping in your abdomen or lower back, or pain in your shoulder. You have vaginal bleeding that soaks a sanitary pad every hour for 3 hours in a row. You pass large clots or other material that looks like tissue or clots. Collect the tissue and bring it with you. Pelvic rest as discussed Coding Level of Care Code ED Assistant Professor Of Radiology for Chg Fwd Exam Comprehensive Documented by User: Indio Victor DO 03/09/21 02:17 HPI - General: Chief complaint: Vaginal Bleeding Stated complaint: bleeding, 7 weeks Time Seen by Provider: 03/08/21 19:18 [facility] PFSH: Medical History (Updated 03/09/21 @ 00:37 by Indio Victor DO) Blood in stool Family History Denies family history of Anesthesia complication Bleeding disorder Social History Smoking and tobacco status: never smoked Alcohol intake: never Course Vital Signs: Vital signs: Vital Signs Temperature 98.1 F 03/08/21 18:46 Pulse Rate 80 03/09/21 00:55 Respiratory Rate 16 03/09/21 00:55 Blood Pressure 152/91 03/09/21 00:55 Pulse Oximetry 100 03/09/21 00:55 MDM - OB/Uterine Contractions MDM Narrative: Medical decision making narrative: 25-year-old female evaluated by Mrs. SharpeliasKASSIDY. I agree with her history, evaluation, and management. This young lady has a 6-week intrauterine with no definite cardiac activity, which may be too early. She is experiencing no significant hemorrhage she will follow-up as an outpatient in a couple of days for repeat quantitative hCG to see if increasing or decreasing appropriately. She knows to return for signs of hemorrhage, worsening pain, fever, or other concerning symptoms. Lab Data: Labs: Lab Results 03/08/21 03/08/21 03/08/21 Range/Units 19:18 22:02 22:02 WBC 7.7 (4.0-10.0) 10^3/ uL RBC 4.15 (4.1-5.3) 10^6/u L Hgb 12.5 (11.5-15.3) g/dL Hct 38.5 (37.0-47.0) % MCV 92.8 (81-99) fL MCH 30.1 (28.0-34.0) pg MCHC 32.5 (30.0-36.0) g/dL RDW 12.1 (12.1-15.1) % Plt Count 310 (130-400) 10^3/c mm MPV 11.0 H (7.4-10.4) fL Neut % (Auto) 42.4 % Lymph % (Auto) 44.0 % Carver % (Auto) 9.3 % Eos % (Auto) 2.8 % Baso % (Auto) 0.6 % Neut # (Auto) 3.27 (1.8-7.7) 10^3/u L Lymph # (Auto) 3.4 (0.8-4.8) 10^3/u L Carver # (Auto) 0.7 (0.2-0.9) 10^3/u L Eos # (Auto) 0.2 (0.0-0.8) 10^3/u L Baso # (Auto) 0.1 (0.0-0.1) 10^3/u L Nucleated RBC % (a uto) 0 % Nucleated RBCs # 0.0 /100WBC Sodium (136-145) mmol/L Potassium (3.5-5.1) mmol/L Chloride (98-107) mmol/L Carbon Dioxide (22-29) mmol/L Anion Gap (5-19) BUN (6-20) mg/dL Creatinine (0.5-0.9) mg/dL GFR Calculation (90-130) mL/min Glucose (65-115) mg/dL Calculated Osmolal ity (285-295) mOsm/k g Calcium (8.5-10.5) mg/dL Ser , Nadir i-Qnt mIU/mL Urine Color Yellow (Yellow) Urine Appearance Clear (CLEAR) Urine pH 5 (5-7) Ur Specific Gravit y 1.025 (1.005-1.030) Urine Protein Neg (Negative) Urine Glucose (UA) Norm (Normal) Urine Ketones Negative (Negative) Urine Blood Neg (Negative) Urine Nitrate Negative (Negative) Urine Bilirubin Neg (Negative) Urine Urobilinogen Norm (Negative) mg/dL Ur Leukocyte Libia ase Negative (Negative) Blood Type A Negative Rho(D) Type Negative / 0 Antibody Screen Negative 03/08/21 Range/Units 22:02 WBC (4.0-10.0) 10^3/ uL RBC (4.1-5.3) 10^6/u L Hgb (11.5-15.3) g/dL Hct (37.0-47.0) % MCV (81-99) fL MCH (28.0-34.0) pg MCHC (30.0-36.0) g/dL RDW (12.1-15.1) % Plt Count (130-400) 10^3/c mm MPV (7.4-10.4) fL Neut % (Auto) % Lymph % (Auto) % Carver % (Auto) % Eos % (Auto) % Baso % (Auto) % Neut # (Auto) (1.8-7.7) 10^3/u L Lymph # (Auto) (0.8-4.8) 10^3/u L Carver # (Auto) (0.2-0.9) 10^3/u L Eos # (Auto) (0.0-0.8) 10^3/u L Baso # (Auto) (0.0-0.1) 10^3/u L Nucleated RBC % (a uto) % Nucleated RBCs # /100WBC Sodium 139 (136-145) mmol/L Potassium 4.0 (3.5-5.1) mmol/L Chloride 103 (98-107) mmol/L Carbon Dioxide 23 (22-29) mmol/L Anion Gap 17.0 (5-19) BUN 12 (6-20) mg/dL Creatinine 0.6 (0.5-0.9) mg/dL GFR Calculation 123.9 (90-130) mL/min Glucose 90 (65-115) mg/dL Calculated Osmolal ity 287 (285-295) mOsm/k g Calcium 9.5 (8.5-10.5) mg/dL Ser , Nadir i-Qnt 2524.00 mIU/mL Urine Color (Yellow) Urine Appearance (CLEAR) Urine pH (5-7) Ur Specific Gravit y (1.005-1.030) Urine Protein (Negative) Urine Glucose (UA) (Normal) Urine Ketones (Negative) Urine Blood (Negative) Urine Nitrate (Negative) Urine Bilirubin (Negative) Urine Urobilinogen (Negative) mg/dL Ur Leukocyte Libia ase (Negative) Blood Type Rho(D) Type Antibody Screen Discharge Plan Discharge Clinical Impression: Vaginal bleeding, Threatened Condition: Stable Prescriptions: No Action levothyroxine 125 mcg capsule 125 mcg PO DAILY@0500 RF: 0 bupropion HCl [Wellbutrin XL] 300 mg tablet extended release 24 hr 300 mg PO DAILY@0900 RF: 0 EpiPen 2-Corona 0.3 mg/0.3 mL auto-injector 0.3 mg IM Q30M PRN (Reason: anaphylaxis) Qty: 2 RF: 0 Miralax 17 gram/dose powder 17 g PO DAILY PRN (Reason: constipation) Qty: 119 RF: 0 Discharge Orders: Discharge ED (Routine); Ordered 03/08/21 Ordered By: Debo Hernandez Referrals: Berna Hendrix MD [Primary Care Provider] - Discharge Diet: Advance as tolerated Discharge Activity: Increase activity as tolerated Patient Instructions: Threatened Miscarriage (ED) Activity Restrictions/Additional Instructions: Please follow up with OB for recheck of beta hcg and US in 48 hours or return to ER sooner if You feel weak or faint. You have worsening cramping in your abdomen or lower back, or pain in your shoulder. You have vaginal bleeding that soaks a sanitary pad every hour for 3 hours in a row. You pass large clots or other material that looks like tissue or clots. Collect the tissue and bring it with you. Pelvic rest as discussed Coding Level of Care Code ED Assistant Professor Of Radiology for Chg Fwd Exam Comprehensive
[2021-03-09 00:04] VITALS: BP 128/80; PULSE 64; RESP 18; O2SAT 94
[2021-03-09 00:14] VITALS: BP 120/93; PULSE 87; RESP 18; O2SAT 100
[2021-03-09 00:55] VITALS: BP 152/91; PULSE 80; RESP 16; O2SAT 100
== END 2021-03-09 00:56 ==
PROVIDERS: Emergency Provider Registered Nurse; PCP Family Medicine
DX: O20.0 Threatened abortion (principal); Z3A.01 Less than 8 weeks gestation of pregnancy
CPT/HCPCS: 36415; 76801; 76817; 80048; 81003; 84702; 85025; 86850; 86900; 90384; 99283

== ENCOUNTER → 2022-05-11 07:58 | Day surgery (SDC) | payer BC, MEDICAID, SELFPAY ==
[2022-05-11 08:32] VITALS: BP 111/82; PULSE 103; RESP 18; TEMP 35.9; O2SAT 98
[2022-05-11 09:42] VITALS: BP 111/82; PULSE 103; RESP 18; TEMP 35.9; O2SAT 98
== END ==
PROVIDERS: PCP Family Medicine; Visit Provider Family Medicine
DX: O26.899 Other specified pregnancy related conditions, unspecified trimester (principal); Z67.91 Unspecified blood type, Rh negative; Z3A.00 Weeks of gestation of pregnancy not specified
CPT/HCPCS: 36415; 36430; 86850; 86900; 90384; 96372

== ENCOUNTER 2022-05-21 11:11 | Outpatient (CLI) | payer BC, MEDICAID, SELFPAY ==
[2022-05-21 11:15] VITALS: BMI 41.4
[2022-05-21 11:28] VITALS: RESP 17; TEMP 36.6
[2022-05-21 11:31] VITALS: BP 125/70; PULSE 99
[2022-05-21 11:51] VITALS: BP 132/69; PULSE 96
[2022-05-21 12:00] VITALS: BP 132/69; PULSE 96
== END 2022-05-21 12:00 | disposition home or self-care (01) ==
LOC: OPOB 11:11 → OBGYN 11:12
PROVIDERS: PCP Family Medicine; Visit Provider Family Medicine
DX: O26.899 Other specified pregnancy related conditions, unspecified trimester (principal); Z3A.00 Weeks of gestation of pregnancy not specified; Z91.81 History of falling
CPT/HCPCS: 99211

== ENCOUNTER 2022-06-05 20:46 | Outpatient (CLI) | payer BC, MEDICAID, SELFPAY ==
[2022-06-05] VITALS (8 sets, daily range): BP systolic 116–126; BP diastolic 66–79; PULSE 92–110; RESP 16; TEMP 36.2; BMI 42.7
== END 2022-06-05 22:05 | disposition home or self-care (01) ==
LOC: OPOB 20:47 → OBGYN 20:47
PROVIDERS: PCP Family Medicine; Visit Provider Family Medicine
DX: O36.8190 Decreased fetal movements, unspecified trimester, not applicable or unspecified (principal); Z3A.00 Weeks of gestation of pregnancy not specified
CPT/HCPCS: 59025; 99211

== ENCOUNTER 2022-06-07 12:33 | Outpatient (CLI) | payer BC, MEDICAID, SELFPAY ==
[2022-06-05 20:46] VITALS: RESP 16
[2022-06-07 12:49] VITALS: BP 107/75; PULSE 101
[2022-06-07 13:03] VITALS: BP 111/76; PULSE 93
[2022-06-07 13:23] VITALS: BMI 41.8
[2022-06-07 13:53] LABS: Nitrazine Paper, PH Negative
== END 2022-06-07 13:20 | disposition home or self-care (01) ==
LOC: OPOB 12:34 → OBGYN 12:35
PROVIDERS: PCP Family Medicine; Visit Provider Family Medicine
DX: O26.899 Other specified pregnancy related conditions, unspecified trimester (principal); Z3A.00 Weeks of gestation of pregnancy not specified; N89.8 Other specified noninflammatory disorders of vagina; R10.9 Unspecified abdominal pain
CPT/HCPCS: 59025; 83986; 99211

== ENCOUNTER 2022-06-13 16:55 | Outpatient (CLI) | payer BC, MEDICAID, SELFPAY ==
[2022-06-13 17:00] VITALS: BMI 42.4
[2022-06-13 17:11] VITALS: BP 133/80; PULSE 93; TEMP 36.1
[2022-06-13 17:26] VITALS: BP 137/82; PULSE 98
[2022-06-13 17:41] VITALS: BP 120/72; PULSE 96
[2022-06-13 17:56] VITALS: BP 125/75; PULSE 104
[2022-06-13 18:05] VITALS: BP 125/75; PULSE 104
== END 2022-06-13 18:10 | disposition home or self-care (01) ==
LOC: OPOB 16:59 → OBGYN 17:00
PROVIDERS: PCP Family Medicine; Visit Provider Family Medicine
DX: O16.3 Unspecified maternal hypertension, third trimester (principal); Z3A.32 32 weeks gestation of pregnancy; O24.419 Gestational diabetes mellitus in pregnancy, unspecified control; O26.893 Other specified pregnancy related conditions, third trimester; R51.9 Headache, unspecified
CPT/HCPCS: 59025; 99211

== ENCOUNTER 2022-06-21 16:20 | Outpatient (CLI) | payer BC, MEDICAID, SELFPAY ==
[2022-06-21 16:59] VITALS: BMI 43.2
[2022-06-21 17:01] VITALS: BP 132/81; PULSE 81
[2022-06-21 17:04] LABS: Basophils # 0.1 10^3/uL (0.0-0.1); Basophils % 0.5 %; Eosinophils # 0.1 10^3/uL (0.0-0.8); Eosinophils % 0.8 %; Hematocrit 31.3 % (37.0-47.0); Hemoglobin 10.3 g/dL (11.5-15.3); Lymphocytes # 2.5 10^3/uL (0.8-4.8); Mean Corpuscular HGB Conc 32.9 g/dL (30.0-36.0); Mean Corpuscular Hemoglobin 28.6 pg (28.0-34.0); Mean Corpuscular Volume 86.9 fl (81-99); Mean Platelet Volume 12.4 fL (7.4-10.4); Monocytes # 0.7 10^3/uL (0.2-0.9); Monocytes % 6.4 %; Neutrophils # 7.31 10^3/uL (1.8-7.7); Neutrophils % 68.7 %; Nucleated Red Blood Cells % 0 %; Platelet Count 248 10^3/cmm (130-400); Red Cell Distribution Width 12.5 % (12.1-15.1); White Blood Count 10.6 10^3/uL (4.0-10.0)
[2022-06-21 17:21] VITALS: BP 140/79; PULSE 82
[2022-06-21 17:21] LABS: Alanine Aminotransferase 8 U/L (0-33); Albumin Level 3.4 g/dL (3.5-5.2); Alkaline Phosphatase 134 U/L (35-105); Anion Gap 14.6 (5-19); Aspartate Amino Transferase 12 U/L (0-32); Blood Urea Nitrogen 8 mg/dL (6-20); Calcium 9.3 mg/dL (8.5-10.5); Carbon Dioxide 20 mmol/L (22-29); Chloride 106 mmol/L (98-107); Globulin 2.9 g/dL (1.3-4.6); Glomerular Filtration Rate 151.6 mL/min (90-130); Glucose 172 mg/dL (65-115); Osmolality Calculated 284 mOsm/kg (285-295); Potassium 4.6 mmol/L (3.5-5.1); Sodium 136 mmol/L (136-145); Total Bilirubin 0.2 mg/dL (0.15-1.2); Total Protein 6.3 g/dL (6.6-8.7); Uric Acid 4.2 mg/dL (2.4-5.7)
[2022-06-21 17:41] VITALS: BP 130/78; PULSE 88
[2022-06-21 17:53] LABS: Urine Creatinine 82 mg/dL (28-217); Urine Protein Random 7 mg/dL
[2022-06-21 17:54] LABS: Bilirubin Urine Neg (Negative); Blood Urine Neg (Negative); Glucose Urine UA 2+ (Normal); Ketones Urine Negative (Negative); Leukocyte Esterase Urine Negative (Negative); Nitrate Urine Negative (Negative); Protein Urine Neg (Negative); Specific Gravity, Urine 1.025 (1.005-1.030); UPRO/UCREAT Ratio 0.09 mg/mg CR; Urine Appearance Clear (CLEAR); Urine Color Straw (Yellow); Urobilinogen Urine Norm (Negative); pH Urine 5 (5-7)
[2022-06-21 17:55] LABS: Add Urine Culture? No; Bacteria Urine TRACE /hpf; Mucus Urine TRACE /hpf; Squamous Epithelial Cell Urine 0-4 /hpf (0-5); WBC Urine RARE /hpf (0-5)
[2022-06-21 18:01] VITALS: BP 143/84; PULSE 83
[2022-06-21 18:15] VITALS: BP 143/84; PULSE 83; RESP 18
== END 2022-06-21 18:10 | disposition home or self-care (01) ==
LOC: OPOB 16:32 → OBGYN 16:33
PROVIDERS: Absent Provider Family Medicine; PCP Family Medicine; Visit Provider Family Medicine
DX: O16.3 Unspecified maternal hypertension, third trimester (principal); Z3A.33 33 weeks gestation of pregnancy
CPT/HCPCS: 36415; 59025; 80053; 81001; 82570; 84156; 84550; 85025; 99211

== ENCOUNTER 2022-06-25 16:38 | Outpatient (CLI) | payer BC, MEDICAID, SELFPAY ==
[2022-06-25 16:45] VITALS: BMI 43.6
[2022-06-25 16:52] VITALS: BP 137/81; PULSE 97
[2022-06-25 17:11] VITALS: BP 141/90; PULSE 96; RESP 18
[2022-06-25 17:26] VITALS: BP 149/96; PULSE 96
[2022-06-25 17:41] VITALS: BP 159/93; PULSE 95
[2022-06-25 17:45] VITALS: BP 159/93; PULSE 95
== END 2022-06-25 17:48 | disposition home or self-care (01) ==
LOC: OPOB 16:38 → OBGYN 16:39
PROVIDERS: PCP Family Medicine; Visit Provider Family Medicine
DX: O24.419 Gestational diabetes mellitus in pregnancy, unspecified control (principal); Z3A.00 Weeks of gestation of pregnancy not specified; O16.9 Unspecified maternal hypertension, unspecified trimester
CPT/HCPCS: 59025; 99211

== ENCOUNTER 2022-06-26 17:45 | Outpatient (CLI) | payer BC, MEDICAID, SELFPAY ==
[2022-06-26] VITALS (9 sets, daily range): BP systolic 131–151; BP diastolic 82–96; PULSE 78–98; RESP 17–18; TEMP 35.9–36.7; O2SAT 98; BMI 39.7
[2022-06-26 18:17] LABS: Glucose Point of Care 168 mg/dL (70-110)
[2022-06-26 18:54] LABS: Basophils % 0.3 %; Eosinophils # 0.1 10^3/uL (0.0-0.8); Eosinophils % 0.7 %; Hemoglobin 9.9 g/dL (11.5-15.3); Lymphocytes # 2.3 10^3/uL (0.8-4.8); Lymphocytes % 23.1 %; Mean Corpuscular Hemoglobin 28.8 pg (28.0-34.0); Mean Corpuscular Volume 87.2 fl (81-99); Mean Platelet Volume 12.9 fL (7.4-10.4); Monocytes # 0.7 10^3/uL (0.2-0.9); Monocytes % 7.2 %; Neutrophils # 6.81 10^3/uL (1.8-7.7); Neutrophils % 67.9 %; Nucleated Red Blood Cells % 0 %; Platelet Count 230 10^3/cmm (130-400); Red Blood Count 3.44 10^6/uL (4.1-5.3); Red Cell Distribution Width 12.6 % (12.1-15.1)
[2022-06-26 19:17] LABS: Alanine Aminotransferase 9 U/L (0-33); Albumin Level 3.3 g/dL (3.5-5.2); Alkaline Phosphatase 133 U/L (35-105); Anion Gap 14.8 (5-19); Aspartate Amino Transferase 15 U/L (0-32); Blood Urea Nitrogen 8 mg/dL (6-20); Calcium 8.7 mg/dL (8.5-10.5); Carbon Dioxide 20 mmol/L (22-29); Chloride 104 mmol/L (98-107); Globulin 2.7 g/dL (1.3-4.6); Glomerular Filtration Rate 151.6 mL/min (90-130); Glucose 164 mg/dL (65-115); Osmolality Calculated 282 mOsm/kg (285-295); Potassium 3.8 mmol/L (3.5-5.1); Sodium 135 mmol/L (136-145); Total Bilirubin 0.2 mg/dL (0.15-1.2); Uric Acid 4.6 mg/dL (2.4-5.7)
[2022-06-26 19:19] LABS: Urine Creatinine 62 mg/dL (28-217); Urine Protein Random 7 mg/dL
[2022-06-26 19:27] LABS: UPRO/UCREAT Ratio 0.11 mg/mg CR
[2022-06-26 19:33] LABS: Add Urine Culture? No; Bacteria Urine TRACE /hpf; Bilirubin Urine Neg (Negative); Blood Urine Neg (Negative); Glucose Urine UA 4+ (Normal); Ketones Urine Negative (Negative); Leukocyte Esterase Urine Negative (Negative); Nitrate Urine Negative (Negative); Protein Urine Neg (Negative); RBC Urine 0-4 /hpf (0-2); Specific Gravity, Urine 1.015 (1.005-1.030); Squamous Epithelial Cell Urine 0-4 /hpf (0-5); Urine Appearance Clear (CLEAR); Urine Color Yellow (Yellow); Urobilinogen Urine Neg (Negative); WBC Urine 0-4 /hpf (0-5); pH Urine 6 (5-7)
--- NOTE | 2022-06-26 19:57 | PC.NURSE ---
Prescription for labetalol 100mg BID 30 day supply called into [facility] pharmacy in [place] per Dr. Hendrix's orders and patients request.
== END 2022-06-26 20:06 | disposition home or self-care (01) ==
LOC: OPOB 17:53 → OBGYN 17:53
PROVIDERS: PCP Family Medicine; Visit Provider Family Medicine
DX: O16.9 Unspecified maternal hypertension, unspecified trimester (principal); Z3A.00 Weeks of gestation of pregnancy not specified
CPT/HCPCS: 36415; 36416; 59025; 80053; 81001; 82570; 82962; 84156; 84550; 85025; 99211

== ENCOUNTER 2022-06-30 12:10 | Outpatient (CLI) | payer BC, MEDICAID, SELFPAY ==
[2022-06-30 12:24] VITALS: RESP 18; BMI 43.9
[2022-06-30 12:31] VITALS: BP 146/71; PULSE 90
[2022-06-30 12:41] VITALS: BP 144/72; PULSE 85
[2022-06-30 12:51] VITALS: BP 146/81; PULSE 81
== END 2022-06-30 13:00 | disposition home or self-care (01) ==
LOC: OPOB 12:11 → OBGYN 12:23
PROVIDERS: PCP Family Medicine; Visit Provider Family Medicine
DX: O26.899 Other specified pregnancy related conditions, unspecified trimester (principal); Z3A.00 Weeks of gestation of pregnancy not specified
CPT/HCPCS: 59025

== ENCOUNTER 2022-07-09 20:54 | Inpatient (IN) | payer BC, MEDICAID, SELFPAY ==
[2022-07-09] VITALS (19 sets, daily range): BP systolic 133–186; BP diastolic 79–119; PULSE 71–116; RESP 16–18; O2SAT 99–100; BMI 43.9
--- NOTE | 2022-07-09 19:29 | USR_ITS ---
PROCEDURE INFORMATION: Exam: US Biophysical Profile Without Non-Stress Test Exam date and time: 07/09/2022 7:40 PM Age: 26 years old Clinical indication: Other: Decreased movement; ; Patient HX: Gdm and HTN. Decrease movement for 2 days; Additional info: Gdm HTN TECHNIQUE: Imaging protocol: US biophysical profile without non-stress testing. COMPARISON: [place] 1[place]10 [place] [id number] 08/11/2017 10:22 AM FINDINGS: Gestation: Single live intrauterine . heart rate: 164 bpm presentation: Cephalic. Vertex presentation Placenta: Posterior grade 1 placenta without previa. Amniotic fluid: Amniotic fluid volume is high, consistent with polyhydramnios. Amniotic fluid index: CONSTANTIN is 20.2 cm. BIOPHYSICAL PROFILE: breathing movement (BPP): 0/2 body movement (BPP): 2/2 tone (BPP): 0/2 Amniotic fluid (BPP): 2/2 Biophysical profile score (BPP): 4/8 MATERNAL ANATOMY: Cervix: Cervical length measures 3.5 cm in length and closed US/US OB BPP wo NST [id number] IMPRESSION: 1. biophysical profile score of 4/8 which is abnormal. 2. Qualitatively high amniotic fluid volume. CONSTANTIN of 20.2 is between 90-95th percentile for the given gestational age.
[2022-07-09 21:14] LABS: Basophils # 0.1 10^3/uL (0.0-0.1); Basophils % 0.4 %; Eosinophils % 0.3 %; Hemoglobin 10.2 g/dL (11.5-15.3); Lymphocytes # 2.3 10^3/uL (0.8-4.8); Lymphocytes % 18.4 %; Mean Corpuscular HGB Conc 32.9 g/dL (30.0-36.0); Mean Corpuscular Hemoglobin 28.4 pg (28.0-34.0); Mean Corpuscular Volume 86.4 fl (81-99); Mean Platelet Volume 12.7 fL (7.4-10.4); Monocytes # 0.8 10^3/uL (0.2-0.9); Monocytes % 6.4 %; Neutrophils # 9.16 10^3/uL (1.8-7.7); Neutrophils % 73.3 %; Nucleated Red Blood Cells % 0 %; Platelet Count 244 10^3/cmm (130-400); Red Blood Count 3.59 10^6/uL (4.1-5.3); Red Cell Distribution Width 13.3 % (12.1-15.1); White Blood Count 12.5 10^3/uL (4.0-10.0)
[2022-07-09] MEDS: ceFAZolin 2,000 MG in sodium chloride 0.9% (plus) 50 ML 100 MG IV (21:15)
[2022-07-09] MEDS: lactated ringers 1,000 ML 999 ML IV (21:15)
[2022-07-09] MEDS: metoclopramide 5 mg/mL SDV 2 mL 10 MG IVP (21:16)
[2022-07-09] MEDS: famotidine 20 mg/2 mL INJ IVP (21:16)
[2022-07-09] MEDS: citric acid-sodium citrate 30 mL UDC PO (21:16)
--- NOTE | 2022-07-09 21:21 | PM.OPHPUD ---
Labor & Delivery H&P Update Date of Procedure: July 09, 2022 Date H&P Performed: 07/07/20 Admission Diagnosis: Nonreassuring testing IUP at 36 weeks 3 days gestation Gestational diabetes mellitus on insulin Chronic hypertension worsening in the third trimester macrosomia Desired permanent surgical sterilization Primary indication for procedure: BPP 01/17 Late decelerations Planned procedure: Primary section Bilateral tubal ligation
--- NOTE | 2022-07-09 21:59 | ANES.PREANE2 ---
Pre-Anesthetic Assessment Height/Weight: Height 1.65 m Weight 119.748 kg Pulse Resp BP 101 H 18 157/98 07/09/22 21:01 07/09/22 18:41 07/09/22 21:01 Preop Diagnosis: Hematochezia C/S Familial anesthetic complications: none Was Beta Laawnda taken within 24 hours: N/A Was Clonidine taken within 24 hours: N/A Social No alcohol and No tobacco Exam alert, oriented x 3, clear to auscultation bilaterally and regular rate & rhythm Airway Submandibular: within normal limits Cervical ROM: within normal limits Mallampati: Class II Dentition: full Metabolic Diabetes Mellitus and Thyroid Disease Anesthetic Plan ASA status: 2E Anesthesia: Regional (specify below) (SAB) Medications/Allergies Home Medications Medication Instructions Recorded Confirmed Last Taken Type levothyroxine 125 mcg capsule 125 mcg PO DAILY@0500 07/07/20 07/02/22 06/26/22 13:30 History epinephrine 0.3 mg/0.3 mL 0.3 mg (0.3 mL) IM Q30M PRN 01/29/21 07/02/22 06/26/22 13:30 Rx injection, auto-injector (EpiPen anaphylaxis #2 ea 2-Corona) aspirin 81 mg chewable tablet 1 tab PO DAILY 05/21/22 07/02/22 06/26/22 13:30 History (Aspirin Childrens) 81 mg insulin detemir U-100 100 unit/mL 15 unit SUBCUT 2XD 05/21/22 07/02/22 06/26/22 13:30 History (3 mL) subcutaneous pen 40 units vits no.130-ferrous fum 1 tab PO DAILY 05/21/22 07/02/22 06/26/22 13:30 History 27 mg iron-folic acid 800 mcg tablet ( Vitamin) ferrous sulfate 325 mg (65 mg 325 mg PO DAILY 06/21/22 07/02/22 06/26/22 13:30 History iron) capsule,extended release insulin lispro 100 unit/mL 10 unit SUBCUT TID 06/21/22 07/02/22 06/26/22 08:00 History subcutaneous pen Allergies Allergy/AdvReac Type Severity Reaction Status Date / Time iodine Allergy rash Verified 06/05/22 23:06 adhesive AdvReac ALGY-Bliste Verified 06/05/22 23:06 [facility] Anesthesia Medical History (Updated 03/17/21 @ 00:01 by ) Blood in stool Family History Denies family history of Anesthesia complication Bleeding disorder Social History Smoking and tobacco status: never smoked Alcohol intake: never Female Reproductive History Date of last menstrual period: 01/12/21 : 4 Data Anesthesia : 07/09/22 21:05 Short CBC 07/09/22 Range/Units 21:05 WBC 12.5 H (4.0-10.0) 10^3/uL Hgb 10.2 L (11.5-15.3) g/dL Hct 31.0 L (37.0-47.0) % MCV 86.4 (81-99) fl Plt Count 244 (130-400) 10^3/cmm Neut % (Auto) 73.3 % Neut # (Auto) 9.16 H (1.8-7.7) 10^3/uL Cardiac Studies: No Data to Display
--- NOTE | 2022-07-09 22:49 | P.OP_ITS ---
Operative Report Date of procedure: July 09, 2022 Pre-op diagnosis: Nonreassuring testing IUP at 36 weeks 3 days gestation Gestational diabetes mellitus requiring insulin -induced versus chronic hypertension macrosomia Desired permanent surgical sterilization Procedure done: Primary low transverse section Via Pfannenstiel skin incision Bilateral tubal ligation Specimens removed/disposition: Vertex male vertex male infant weight 3750 grams, 8 pounds 4 ounces, Apgars 7 and 9 Pathology: Segments of right and left fallopian tubes Surgeon: Berna Hendrix MD Estimated blood loss (mL): 500 IV fluids (mL): 1,300 Urine output (mL): 50 Complications: None Condition: stable Brief History: This is a 26-year-old G4, P0202 at 36 weeks 3 days gestation with insulin- dependent gestational diabetes mellitus, -induced versus chronic hypertension on labetalol, macrosomia and hypothyroidism Who presented for routine NST. The NST was nonreactive and biophysical profile was obtained. Score was 4 out of 10. The patient was having some nonpalpable contractions upon admission that were associated with late decelerations. For all of these reasons decision was made to proceed with urgent section. Procedure: After informed consent, the patient was taken to the OR where spinal anesthesia was administered. She was prepped and draped in normal sterile fashion in dorsal supine position with a left lateral tilt. A Pfannenstiel skin incision was made and carried through to the underlying layer of fascia sharply. The fascial incision was extended laterally using the Mayos. The fascia was grasped with Shauna clamps and the underlying rectus muscles were dissected off taking care to avoid injury to the underlying tissue. The peritoneum was entered digitally and the incision site was manually stretched. The bladder blade was inserted. The vesicouterine peritoneum was identified and entered sharply using the Metzenbaums. The bladder flap was created digitally. The bladder blade was then reinserted. Uterine incision was made in a transverse fashion in the lower uterine segment. Amniotic rupture of membranes was performed using an Allis clamp and a copious amount of clear fluid was noted. The infant's head was delivered atraumatically with delivery of the body simultaneously. The was suctioned at delivery. The cord was clamped and cut and the was handed to the waiting pediatric team. Cord blood was obtained. The placenta was delivered using manual pressure. The uterus was exteriorized from the abdomen and a dry sponge was used to clear the uterus of clots and debris. The uterine incision was repaired using 0 chromic in a running locked fashion. A second layer of the same suture was used in an imbricating manner. Excellent hemostasis was obtained. The left fallopian tube was grasped with a [place] and a midportion of the tube was ligated and excised. Segment of the tube was sent to pathology. Tubal ostia were visualized. The cut portions of the tube were coagulated using the Bovie. The right fallopian tube was then grasped with a Ravi and a distal portion of the tube was ligated and excised. Segment of the tube was sent to pathology. Tubal ostia were visualized. The cut portions of the tube were coagulated using the Bovie. The uterus was then returned to the abdomen. Irrigation was used to clear the gutters of clots and debris. The uterine incision was reinspected for hemostasis. The peritoneum was then reapproximated using 4-0 Vicryl in a running fashion. The subfascial tissue was inspected for hemostasis and a few small bleeders were coagulated using the Bovie. The fascia was then reapproximated using 0 Vicryl in a running fashion. The subcutaneous tissue was irrigated and any small bleeders were coagulated using the Bovie. The subcutaneous tissue was then reapproximated using 4-0 Vicryl in a running fashion. The skin was then reapproximated using 4-0 Vicryl on a Allan needle. Steri-Strips and a pressure bandage were applied and patient went to recovery in good condition. Sponge instrument and needle counts were correct.
[2022-07-10] VITALS (18 sets, daily range): BP systolic 124–150; BP diastolic 78–99; PULSE 75–109; RESP 16–18; TEMP 36.5–36.8; O2SAT 96–99
--- NOTE | 2022-07-10 01:27 | PC.NURSE ---
at bedside when lab drawn, point of care glucose had been preformed and glucose management initiated prior to lab result being completed.
--- NOTE | 2022-07-10 02:05 | PC.NURSE ---
Dr. Mckeon notified by phone that Dr Hendrix was requesting he be present for section at 2049. candy supervisor stated that Anaesthesia and second tech had been notified at 2054
--- NOTE | 2022-07-10 04:30 | PC.NURSE ---
Patient transferred to wheelchair with standby assist, tolerated well. Patient to nursery to see infant.
[2022-07-10] MEDS: ketorolac 30 mg/mL INJ IVP ×3 (05:43→18:02)
--- NOTE | 2022-07-10 08:26 | ANE.PACU2 ---
Inpatient post-anesthesia follow up: Airway intact: Yes Vital signs: Temperature Pulse Rate 109 Respiratory Rate 16 Blood Pressure 133/78 Pulse Oximetry 98 Oxygen Delivery Me thod Room Air Oxygen Flow Rate Fraction of Inspir ed Oxygen Hydration adequate: Yes Nausea and vomiting: No Pain level: 2 Mental status: Baseline
[2022-07-10] MEDS: ferrous sulfate EC 325 mg Tablet PO ×2 (09:24→18:02)
[2022-07-10] MEDS: docusate sodium 100 mg Capsule PO ×2 (09:24→18:02)
[2022-07-10] MEDS: prenatal vitamin Capsule 1 CAP PO (09:24)
[2022-07-10] MEDS: acetaminophen 325 mg Tablet 650 MG PO ×2 (09:25→23:57)
--- NOTE | 2022-07-10 09:50 | PM.PN ---
Subjective Subjective: Doing fine. Bleeding is about average. Pain is controlled. Vitals/I&O/Wt Last Vital Signs Pulse 109 H 07/10/22 05:30 Resp 16 07/10/22 00:30 BP 133/78 07/10/22 05:30 Pulse Ox 98 07/10/22 05:30 O2 Del Method 07/10/22 05:30 07/09/22 07/10/22 07/10/22 22:59 06:59 14:59 Intake Total 1300 / 1300 Output Total 1100 / 1100 Balance 200 / 200 Weight last 48 hrs Weight 119.748 kg Physical Exam Narrative: Alert and oriented, sitting up in bed drinking, heart regular rate and rhythm, lungs clear to auscultation bilaterally, abdomen is soft and nontender, fundus is firm, dressing is clean dry and intact. Data : 07/09/22 21:05 A&P Assessment and plan (1) Status post primary low transverse section: Routine postoperative care (2) Insulin dependent gestational diabetes mellitus (GDM), antepartum: (3) induced hypertension, delivered, current hospitalization: Versus some component of chronic hypertension. we have held her labetalol. Her blood pressures have been mildly elevated in the 140s over 90s. (4) Hypothyroidism: Continue home levothyroxine Attestations Medical Necessity Statement*: Routine and postoperative care Coding Level of Care Code Acute Laundry Or Dry Cleaners Counter Clerk for Chg Fwd Diagnoses Status post primary low transverse section Z98.891 Insulin dependent gestational diabetes mellitus (GDM), antepartum induced hypertension, delivered, current hospitalization O13.4 Hypothyroidism E03.9
[2022-07-10 12:57] LABS: Hematocrit 27.2 % (37.0-47.0); Mean Corpuscular HGB Conc 33.1 g/dL (30.0-36.0); Mean Corpuscular Hemoglobin 28.8 pg (28.0-34.0); Mean Corpuscular Volume 87.2 fl (81-99); Platelet Count 215 10^3/cmm (130-400); Red Blood Count 3.12 10^6/uL (4.1-5.3); Red Cell Distribution Width 13.4 % (12.1-15.1); White Blood Count 12.6 10^3/uL (4.0-10.0)
--- NOTE | 2022-07-10 22:37 | PC.NURSE ---
When entering the room to obtain vitals and remove dressing the patient was up cleaning the room and making the couch into a bed for her . Her pulse rate was a little high but due to activity she was otherwise asymptomatic at this time. She denies pain at this time. Wound dressing was removed and IV was removed at this time for patient to take a shower.
[2022-07-10] MEDS: hyDROXYzine 25 mg Capsule 50 MG PO (23:57)
--- NOTE | 2022-07-11 00:03 | PC.NURSE ---
Nurse helped patient remove her wound dressing and IV was removed as well after 24 hours. Patient tolerated both procedures well. Patient then took a shower and was complaining of itching and mild stomach pain rating it 3/10. I gave her Vistaril and Tylenol. Patient has no other complaints at this time. Her bedding was changed while she was up in the shower.
[2022-07-11 04:23] VITALS: BP 137/80; PULSE 104; RESP 19; TEMP 37; O2SAT 97
[2022-07-11 05:51] VITALS: BP 136/79; PULSE 87; RESP 18; TEMP 36.6; O2SAT 99
--- NOTE | 2022-07-11 06:05 | PC.NURSE ---
Rhogam injection given per orders. Signed consent obtained first. Patient tolerated procedure well.
[2022-07-11] MEDS: HYDROcodone-acetaminophen 5-325 mg Tablet PO ×2 (06:13→13:53)
[2022-07-11] MEDS: prenatal vitamin Capsule 1 CAP PO (08:41)
[2022-07-11] MEDS: ferrous sulfate EC 325 mg Tablet PO (08:41)
[2022-07-11] MEDS: ibuprofen 800 mg tablet PO ×2 (08:41→14:06)
[2022-07-11] MEDS: docusate sodium 100 mg Capsule PO (08:41)
--- NOTE | 2022-07-11 09:54 | PM.DCS ---
Discharge Providers Date of Admission: 07/09/22 20:54 Date of Discharge: July 11, 2022 Attending Provider at Admission: Berna Hendrix MD Attending Provider at Discharge: Berna Hendrix MD Primary Care Provider: Berna Hendrix MD Diagnoses at Discharge Discharge Diagnosis (1) Status post primary low transverse section: Status: Acute (2) Insulin dependent gestational diabetes mellitus (GDM), antepartum: Status: Acute (3) induced hypertension, delivered, current hospitalization: Status: Acute (4) Hypothyroidism: Status: Acute Reason for Visit Reason for Visit: NST-GDM Hospital Course Hospital Course This is a 26-year-old G4 now P0303 who underwent an urgent primary section at 36 weeks 3 days gestation for nonreassuring testing. Her was complicated by insulin-dependent diabetes mellitus and -induced hypertension and hypothyroidism. She did well postoperatively. She was ambulating, tolerating a regular diet, had decent pain control and was requesting discharge home. The was transported to the NICU and she wished to follow. Physical Exam Narrative: Alert and oriented, heart regular rate and rhythm, lungs clear to auscultation bilaterally, abdomen soft with appropriate postoperative tenderness, incision is clean dry and intact with Steri-Strips in place. Extremities have 1+ edema but no calf tenderness Urinary Catheter Management: Bojorquez: Cath Placed During This Visit: yes, but has since been removed by the nurse Reason for Continuing Indwelling Catheter: Decision to DC Catheter Date Urinary Catheter Removed: 07/10/22 Time Urinary Catheter Discontinued: 13:00 Discharge Data Studies Completed and Pending Completed Studies During Hospitalization Category Date Time Status US OB BPP wo NST 98334 Routine Ultrasound 07/09/22 19:29 Completed Pending at discharge Category Date Time Status Pathology: Surgical [PTH] Routine Pth 07/10/22 03:27 Ordered Radiology Impressions Obstetrics US/Biophysical Profile 07/09/22 19:29 IMPRESSION: 1. biophysical profile score of 4/8 which is abnormal. 2. Qualitatively high amniotic fluid volume. CONSTANTIN of 20.2 is between 90-95th percentile for the given gestational age. ADDENDUM: 07/09/222117 Addendum: THIS REPORT CONTAINS FINDINGS THAT MAY BE CRITICAL TO PATIENT CARE. The findings were verbally communicated via telephone conference with BERNA HENDRIX at 9:16 PM CDT on 07/09/2022. The findings were acknowledged and understood. Laboratory Results WBC 12.6 10^3/uL (4.0-10.0) H 07/10/22 10:15 RBC 3.12 10^6/uL (4.1-5.3) L 07/10/22 10:15 Hgb 9.0 g/dL (11.5-15.3) L 07/10/22 10:15 Hct 27.2 % (37.0-47.0) L 07/10/22 10:15 MCV 87.2 fl (81-99) 07/10/22 10:15 MCH 28.8 pg (28.0-34.0) 07/10/22 10:15 MCHC 33.1 g/dL (30.0-36.0) 07/10/22 10:15 RDW 13.4 % (12.1-15.1) 07/10/22 10:15 Plt Count 215 10^3/cmm (130-400) 07/10/22 10:15 MPV 13.0 fL (7.4-10.4) H 07/10/22 10:15 Neut % (Auto) 73.3 % 07/09/22 21:05 Lymph % (Auto) 18.4 % 07/09/22 21:05 Cameron % (Auto) 6.4 % 07/09/22 21:05 Eos % (Auto) 0.3 % 07/09/22 21:05 Baso % (Auto) 0.4 % 07/09/22 21:05 Neut # (Auto) 9.16 10^3/uL (1.8-7.7) H 07/09/22 21:05 Lymph # (Auto) 2.3 10^3/uL (0.8-4.8) 07/09/22 21:05 Cameron # (Auto) 0.8 10^3/uL (0.2-0.9) 07/09/22 21:05 Eos # (Auto) 0.0 10^3/uL (0.0-0.8) 07/09/22 21:05 Baso # (Auto) 0.1 10^3/uL (0.0-0.1) 07/09/22 21:05 Nucleated RBC % (auto) 0 % 07/09/22 21:05 Nucleated RBCs # 0.0 /100WBC 07/09/22 21:05 Blood Type A Negative 07/09/22 21:05 Blood Type A Negative 07/09/22 21:05 Rho(D) Type Negative 07/09/22 21:05 Rho(D) Type Negative 07/09/22 21:05 Antibody Screen Negative 07/09/22 21:05 Screen Negative (Negative) 07/10/22 10:15 Vitals Last Vital Signs Temp 97.9 F 07/11/22 05:51 Pulse 87 07/11/22 05:51 Resp 18 07/11/22 05:51 BP 136/79 07/11/22 05:51 Pulse Ox 99 07/11/22 05:51 O2 Del Method 07/11/22 04:23 Discharge Plan Discharge Patient Disposition: Home Condition: Stable Prescriptions: New ibuprofen 800 mg Tablet 800 mg PO TID PRN (Reason: Abdominal Discomfort) Qty: 40 0RF hydrocodone-acetaminophen 5-325 mg Tablet 1 - 2 tab PO Q4H PRN (Reason: severe pain) Qty: 15 0RF levothyroxine 125 mcg Tablet 125 mcg PO DAILY@0500 Qty: 30 0RF docusate sodium 100 mg Capsule 100 mg PO BID Qty: 60 0RF Continued levothyroxine 125 mcg capsule 125 mcg PO DAILY@0500 epinephrine [EpiPen 2-[place]] 0.3 mg/0.3 mL auto-injector 0.3 mg IM Q30M PRN (Reason: anaphylaxis) Qty: 2 0RF Rx Instructions: do not exceed 12 doses per 24 hrs Vitamin 27 mg iron- 800 mcg Tablet 1 tab PO DAILY Discontinued aspirin [Aspirin Childrens] 81 mg Tablet,Chewable 1 tab PO DAILY Levemir Flexpen 100 unit/mL (3 mL) Insulin Pen 15 unit SUBCUT 2XD ferrous sulfate 325 mg (65 mg iron) Capsule, Extended Release 325 mg PO DAILY insulin lispro [Humalog Pen] 100 unit/mL Insulin Pen 10 unit SUBCUT TID Discharge Orders: Discharge Order (Routine); Ordered 07/11/22 Ordered By: Berna Hendrix Discharge Diet: Usual diet Discharge Activity: Limit activity as instructed Patient Instructions: Opioid Safety, (GEN), OB Care at Home, Bleeding (DC) Discharge Attestations Time Spent in Discharge Care*: less than 30 min Quality Metrics Clinical Quality Measures [ No reported AMI, CVA or VTE this stay] Coding Level of Care Code Acute Chg FW DC note Diagnoses Status post primary low transverse section Z98.891 Insulin dependent gestational diabetes mellitus (GDM), antepartum induced hypertension, delivered, current hospitalization O13.4 Hypothyroidism E03.9
--- NOTE | 2022-07-11 11:39 | PC.NURSE ---
1136 Mike team took baby into see pt before leaving with baby. Pt. voices being sad she is unable to go with him, but understands.
[2022-07-11 12:10] VITALS: BP 132/85; PULSE 103; RESP 18; TEMP 36.9; O2SAT 98
[2022-07-11 16:15] VITALS: BP 134/78; PULSE 108; RESP 18; TEMP 36.9; O2SAT 98
--- NOTE | 2022-07-11 17:11 | PC.NURSE ---
labs not available, patient unsure of rubella immunity. MMR vaccine not given.
== END 2022-07-11 16:35 | disposition home or self-care (01) | DRG 784 ==
LOC: OPOB 20:54 → OBGYN 20:54
PROVIDERS: Admitting Provider Family Medicine; PCP Family Medicine; Visit Provider Family Medicine
PROC: 10D00Z1 Extraction of Products of Conception, Low, Open Approach (ICD-10-PCS; CPT 59514; principal; 2022-07-09 21:30)
DX: O76 Abnormality in fetal heart rate and rhythm complicating labor and delivery (principal); O10.02 Pre-existing essential hypertension complicating childbirth; O36.63X0 Maternal care for excessive fetal growth, third trimester, not applicable or unspecified; O24.424 Gestational diabetes mellitus in childbirth, insulin controlled; O13.4 Gestational [pregnancy-induced] hypertension without significant proteinuria, complicating childbirth; O28.8 Other abnormal findings on antenatal screening of mother; O99.284 Endocrine, nutritional and metabolic diseases complicating childbirth; E03.9 Hypothyroidism, unspecified; Z3A.36 36 weeks gestation of pregnancy; Z37.0 Single live birth; Z79.899 Other long term (current) drug therapy; Z30.2 Encounter for sterilization
CPT/HCPCS: 36415; 36430; 59025; 59409; 76819; 85025; 85027; 85460; 86850; 86900; 88302; 90384; 96374; J1200; J1885; J2274; J2765; J3010; J3490; J7030